=== PATIENT | female | born 1985 ===

== ENCOUNTER 2016-08-18 07:25 | Emergency (ER) | payer OTHER ==
--- NOTE | 2016-08-18 09:44 | DIAGNOSTIC IMAGING REPORT ---
PROCEDURE: CT ABD/PELVIS WITH CONTRAST CLINICAL INDICATION: ABDOMINAL PAIN TECHNIQUE: 125 ml of Isovue 300 were injected intravenously and axial images were obtained of the entire abdomen and pelvis with sagittal and coronal reformations. COMPARISON: None. FINDINGS: ABDOMEN: Lung base are clear. Normal heart size. Liver, gallbladder, pancreas, spleen, adrenal glands, kidneys and abdominal aorta are normal. Mild descending colon diverticulosis. PELVIS: Normal appendix. Mild mid sigmoid diverticulosis with wall thickening and mild inflammatory changes. There is no free air or abscess. IUD in place. 1.3 cm involuting left ovarian cyst with small amount of free fluid. Normal bladder. Bones are unremarkable. IMPRESSION: 1. Mild sigmoid diverticulitis without abscess or free air 2. Mild descending colon diverticulosis 3. IUD in place 4. 1.3 cm involuting left ovarian cyst with a small amount of free fluid 5. Results discussed with Dr. Montiel All CT scans at this facility use dose modulation, iterative reconstruction, and/or weight-based dosing when appropriate to reduce radiation dose to as low as reasonably achievable.
--- NOTE | 2016-08-18 09:57 | ED ORDER SUMMARY ---
..... Patient: JESUS MANUEL MEADE OrderSheet [facility] VisitID: [id number] [address] [place] [address] 31y, F Registration Date/Time: 08/18/2016 ORDER SHEET Weight: 65.7 kg (stated) Allergies: No Known Drug Allergy GENERAL ORDERS: CBC w Diff Urgent (08:14 08/18/2016 Peterson ARREAGA) (Ack 8:19 ADITYAoerusselner) (8:24 Carl R.N.) CMP Urgent (08:08/18/2016 Peterson ARREAGA) (Ack 8:19 ADITYAoerusselner) (8:24 Carl R.N.) UA-Culture if indicated Urgent (08:08/18/2016 Peterson ARREAGA) (Ack 8:19 ADITYAoerusselner) (8:53 KHoerner) Amylase Urgent (08:08/18/2016 Peterson ARREAGA) (Ack 8:19 ADITYAoerusselner) (8:24 Carl R.N.) Lipase Urgent (08:08/18/2016 Peterson ARREAGA) (Ack 8:19 ADITYAoerner) (8:24 Carl R.N.) Urine Urgent (08:08/18/2016 Peterson ARREAGA) (Ack 8:19 ADITYAoerner) (8:53 KHoerner) Blood Culture (No) (N/A) Urgent (08:32 08/18/2016 Peterson ARREAGA) (Ack 8:34 KHoerner) (8:53 KHoerner) Lactate, Serum Urgent (08:32 08/18/2016 Peterson ARREAGA) (Ack 8:34 ADITYAoerusselner) (8:53 KHoerner) CT Abd/Pel w Cont (No) (See report) Urgent (08:49 08/18/2016 Peterson ARREAGA) (Ack 8:53 KHoerner) (9:15 KHoerner) MEDICATION ORDERS: Ciprofloxacin PO 500 mg (NOW) (09:45 08/18/2016 Ham Marie) (Ack 10:01 Carl R.N.) (10:13 Carl R.N.) IV FLUIDS: IV NS : initial bolus 500 mL (1000 mL/hr), then 125 mL/hr for 4h (NOW); Urgent (08:14 08/18/2016 Peterson ARREAGA) (Ack 8:16 Carl R.N.) (8:24 Carl R.N.) Dilaudid IV 0.5 mg (HIGH ALERT MEDICATION, NOW) (08:48 08/18/2016 Peterson ARREAGA) (Ack 8:52 Carl R.N.) (9:09 Carl R.N.) Zofran IV 4 mg (NOW) (08:48 08/18/2016 Peterson ARREAGA) (Ack 8:52 Carl R.N.) (9:09 Carl R.N.) Flagyl IV 500 mg/100mL (NOW) (09:45 08/18/2016 Ham Marie) (Ack 10:01 Carl R.N.) (10:13 Carl R.N.) ORDER SHEET NOTES: [Electronically signed by Flakito Montiel Dr. (11:27 08/18/2016)] [Electronically signed by Mey Zazueta R.N. (11:38 08/18/2016)] [Electronically locked/signed by Mey Zazueta R.N. (11:38 08/18/2016)]
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
--- NOTE | 2016-08-18 09:57 | ED ORDER SUMMARY ---
..... Patient: JESUS MANUEL MEADE OrderSheet [facility] VisitID: [id number] [address] [place] [address] 31y, F Registration Date/Time: 08/18/2016 ORDER SHEET Weight: 65.7 kg (stated) Allergies: No Known Drug Allergy GENERAL ORDERS: CBC w Diff Urgent (08:14 08/18/2016 Petersno ARREAGA) (Ack 8:19 ADITYAoerusselner) (8:24 Carl R.N.) CMP Urgent (08:08/18/2016 Peterson ARREAGA) (Ack 8:19 ADITYAoerusselner) (8:24 Carl R.N.) UA-Culture if indicated Urgent (08:08/18/2016 Peterson ARREAGA) (Ack 8:19 ADITYAoerusselner) (8:53 KHoerner) Amylase Urgent (08:08/18/2016 Peterson ARREAGA) (Ack 8:19 ADITYAoerusselner) (8:24 Carl R.N.) Lipase Urgent (08:08/18/2016 Peterson ARREAGA) (Ack 8:19 ADITYAoerner) (8:24 Carl R.N.) Urine Urgent (08:08/18/2016 Peterson ARREAGA) (Ack 8:19 ADITYAoerner) (8:53 KHoerner) Blood Culture (No) (N/A) Urgent (08:32 08/18/2016 Peterson ARREAGA) (Ack 8:34 KHoerner) (8:53 KHoerner) Lactate, Serum Urgent (08:32 08/18/2016 Peterson ARREAGA) (Ack 8:34 ADITYAoerusselner) (8:53 KHoerner) CT Abd/Pel w Cont (No) (See report) Urgent (08:49 08/18/2016 Peterson ARREAGA) (Ack 8:53 KHoerner) (9:15 KHoerner) MEDICATION ORDERS: Ciprofloxacin PO 500 mg (NOW) (09:45 08/18/2016 Ham Marie) (Ack 10:01 Carl R.N.) (10:13 Carl R.N.) IV FLUIDS: IV NS : initial bolus 500 mL (1000 mL/hr), then 125 mL/hr for 4h (NOW); Urgent (08:14 08/18/2016 Peterson ARREAGA) (Ack 8:16 Carl R.N.) (8:24 Carl R.N.) Dilaudid IV 0.5 mg (HIGH ALERT MEDICATION, NOW) (08:48 08/18/2016 Peterson ARREAGA) (Ack 8:52 Carl R.N.) (9:09 Carl R.N.) Zofran IV 4 mg (NOW) (08:48 08/18/2016 Peterson ARREAGA) (Ack 8:52 Carl R.N.) (9:09 Carl R.N.) Flagyl IV 500 mg/100mL (NOW) (09:45 08/18/2016 Ham Marie) (Ack 10:01 Carl R.N.) (10:13 Carl R.N.) ORDER SHEET NOTES: [Electronically signed by Flakito Montiel Dr. (11:27 08/18/2016)] [Electronically signed by Mey Zazueta R.N. (11:38 08/18/2016)] [Electronically locked/signed by Mey Zazueta R.N. (11:38 08/18/2016)]
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
--- NOTE | 2016-08-18 11:38 | ED DISCHARGE INSTRUCTIONS ---
Patient: JESUS MANUEL MEADE General Instructions [facility] VisitID: [id number] Velvet Sánchez [place] [address] 31y, F Registration Date/Time: 08/18/2016 Acute diverticulitis of the colon. No perforation, bleeding, abscess, peritonitis or obstruction. INSTRUCTIONS Alternate Tylenol (Acetaminophen) or Motrin (Ibuprofen) for fever control. Take according to label instructions. Drink plenty of fluids. Warnings: GENERAL WARNINGS: Return or contact your physician immediately if your condition worsens or changes unexpectedly, if not improving as expected, or if other problems arise. SPECIFICALLY, return if you develop fever or the inability to keep fluids down; or if there is no improvement in the pain in the abdomen. Your Current Medications: CONTINUE TAKING THE FOLLOWING MEDICATIONS: Gabapentin Oral : 100 mg 3x a day. LamoTRIgine Oral : 150 mg bid. Vitamins/Minerals Oral. Wellbutrin Oral : 150 mg daily. Prescription Medications: Zofran (orally disintegrating tablets) 4 mg: take 1 orally every 6 hours as needed for nausea and vomiting. Dispense ten (10). No refill. Substitution is permissible. Cipro 500 mg: take 1 tab orally every 12 hours for 7 days. No refills. Substitution is permissible. Oxycodone/APAP 5 mg/325 mg: take 1 tablet orally every 6 hours as needed for pain. Dispense fifteen (15). No refill. Flagyl 500 mg: Take 1 tablet orally every 8 hours for 7 days. No refill. Substitution is permissible Follow-up: Follow up with your doctor in about three days. Call for an appointment. Screening today revealed the patient's blood pressure to be in the normal range. ADDITIONAL INFORMATION Diverticulitis Some people develop pouches along the wall of the colon as they get older. The pouches,called diverticuli, usually cause no symptoms. If the pouches become blocked, an infection may occur known as diverticulitis. This causes lower abdominal pain and fever. If not treated, it can become a serious condition, causing an abscess to form inside the pouch. The abscess may block the instestinal tract even or rupture, spreading infection throughout the abdomen. When treatment is started early, oral antibiotics alone may be enough to cure diverticulitis. This method is tried first. However, if you do not improve or if your condition worsens while you are trying oral antibiotics, it will be necessary to admit you to the hospital for IV antibiotics. Severe cases may require surgery. Home care The following guidelines will help you care for your diverticulitis at home: During the acute illness, rest and follow a low-fiber diet: Foods to Include: flake cereal, mashed potatoes, pancakes, waffles, pasta, white bread, rice, applesauce, bananas, eggs, meat, fish, poultry, tofu, cooked vegetables. Take antibiotics exactly as directed. Do not miss any doses or stop taking the medication, even if you feel better. Monitor your temperature and report any rising temperature to your doctor. Preventing future attacks Once you have had an episode of diverticulitis, you are at risk of having a recurrence. After you have recovered from this episode, you may be able to reduce your risk by eating a high-fiber diet (2035 gm/day of fiber). This cleans out the colon pouches that already exist and prevent new ones from forming. Foods high in fiber includes fresh fruits and edible peelings, raw or lightly cooked vegetables, whole grain cereals and breads, dried beans and peas, bran. Follow-up care Follow up with your doctor as advised or sooner if you are not improving in the nexttwo days. When to seek medical care Get prompt medical attention if any of the following occur: Fever of 100.4F (38C) or higher, or as directed by your health care provider Repeated vomiting or swelling of the abdomen Weakness, dizziness, light-headedness Increasing abdominal pain that becomes severe or spreads to your back Pain that moves to the right lower abdomen Rectal bleeding (red, black or maroon color of the stools) Unexpected vaginal bleeding Fever Control (Adult) A fever is a natural reaction of the body to an illness. In most cases, the temperature itself is not harmful. It actually helps the body fight infections. A fever does not need to be treated unless you feel very uncomfortable. Home Care If you feel warm, check your temperature. If you feel very uncomfortable and your temperature is at or higher than 100.4F (38C) oral, you may take acetaminophen (Tylenol) every 4 to 6 hours. If you cant take or keep down oral medicine, ask your pharmacist for Tylenol suppositories, which you can get without a prescription. If the fever does not respond to acetaminophen within 1 hour, take ibuprofen (Advil or Motrin). If this works, keep taking the ibuprofen every 6 to 8 hours. Note: If you have chronic liver or kidney disease or ever had a stomach ulcer or GI bleeding, talk with your doctor before using these medications. If either medication alone does not keep the fever down, you may alternate the two medicines every 3 to 4 hours, only if your healthcare provider has instructed you to do so. For example, take Motrin then wait 3 hours, take Tylenol then wait 3 hours, take Motrin, and so on. Follow your healthcare providers instructions exactly. Clothing: Keep clothing light because excess body heat is lost through the skin. The fever will go up if you wear extra layers or wrap in blankets. Fluids: Fever causes the body to lose water through evaporation. Drink plenty of fluids such as water, juice, clear sodas, dario tess, or lemonade. Do not use aspirin in anyone under 18 years of age who is ill with a fever. It can cause severe liver damage. Follow Up with your doctor or as advised by our staff if you do not get better after 48 hours. Get Prompt Medical Attention if any of the following occur: Fever does not get better after taking fever medication Fast or difficult breathing Earache, sinus pain, stiff or painful neck, headache, repeated diarrhea or vomiting You feel unusually irritable, drowsy, or confused A rash appears You feel weak or dizzy, or that you might faint Ondansetron Oral disintegrating tablet What is this medicine? ONDANSETRON (on KEVON se chantel) is used to treat nausea and vomiting caused by chemotherapy. It is also used to prevent or treat nausea and vomiting after surgery. How should I use this medicine? These tablets are made to dissolve in the mouth. Do not try to push the tablet through the foil backing. With dry hands, peel away the foil backing and gently remove the tablet. Place the tablet in the mouth and allow it to dissolve, then swallow. While you may take these tablets with water, it is not necessary to do so. Talk to your haul driver regarding the use of this medicine in children. Special care may be needed. What side effects may I notice from receiving this medicine? Side effects that you should report to your doctor or health intensive care unit nurse as soon as possible: allergic reactions like skin rash, itching or hives, swelling of the face, lips, or tongue breathing problems dizziness fast or irregular heartbeat feeling faint or lightheaded, falls fever and chills swelling of the hands and feet tightness in the chest Side effects that usually do not require medical attention (report to your doctor or health intensive care unit nurse if they continue or are bothersome): constipation or diarrhea headache What may interact with this medicine? Do not take this medicine with any of the following medications: -apomorphine -cisapride -dofetilide -dronedarone -pimozide -thioridazine -ziprasidone This medicine may also interact with the following medications: -carbamazepine -phenytoin -rifampicin -tramadol -other medicines that prolong the QT interval (cause an abnormal heart rhythm) What if I miss a dose? If you miss a dose, take it as soon as you can. If it is almost time for your next dose, take only that dose. Do not take double or extra doses. Where should I keep my medicine? Keep out of the reach of children. Store between 2 and 30 degrees C (36 and 86 degrees F). Throw away any unused medicine after the expiration date. What should I tell my health care provider before I take this medicine? They need to know if you have any of these conditions: heart disease history of irregular heartbeat liver disease low levels of magnesium or potassium in the blood an unusual or allergic reaction to ondansetron, granisetron, other medicines, foods, dyes, or preservatives or trying to get breast-feeding What should I watch for while using this medicine? Check with your doctor or health intensive care unit nurse as soon as you can if you have any sign of an allergic reaction. Ciprofloxacin Hydrochloride Oral tablet What is this medicine? CIPROFLOXACIN (sip raven FLOX a sin) is a quinolone antibiotic. It is used to treat certain kinds of bacterial infections. It will not work for colds, flu, or other viral infections. How should I use this medicine? Take this medicine by mouth with a glass of water. Follow the directions on the prescription label. Take your medicine at regular intervals. Do not take your medicine more often than directed. Take all of your medicine as directed even if you think your are better. Do not skip doses or stop your medicine early. You can take this medicine with food or on an empty stomach. It can be taken with a meal that contains dairy or calcium, but do not take it alone with a dairy product, like milk or yogurt or calcium-fortified juice. A special MedGuide will be given to you by the pharmacist with each prescription and refill. Be sure to read this information carefully each time. Talk to your haul driver regarding the use of this medicine in children. Special care may be needed. What side effects may I notice from receiving this medicine? Side effects that you should report to your doctor or health intensive care unit nurse as soon as possible: - allergic reactions like skin rash, itching or hives, swelling of the face, lips, or tongue - breathing problems - confusion, nightmares or hallucinations - feeling faint or lightheaded, falls - irregular heartbeat - joint, muscle or tendon pain or swelling - pain or trouble passing urine -persistent headache with or without blurred vision - redness, blistering, peeling or loosening of the skin, including inside the mouth - seizure - unusual pain, numbness, tingling, or weakness Side effects that usually do not require medical attention (report to your doctor or health intensive care unit nurse if they continue or are bothersome): - diarrhea - nausea or stomach upset - white patches or sores in the mouth What may interact with this medicine? Do not take this medicine with any of the following medications: cisapride droperidol terfenadine tizanidine This medicine may also interact with the following medications: antacids caffeine cyclosporin didanosine (ddI) buffered tablets or powder medicines for diabetes medicines for inflammation like ibuprofen, naproxen methotrexate multivitamins omeprazole phenytoin probenecid sucralfate theophylline warfarin What if I miss a dose? If you miss a dose, take it as soon as you can. If it is almost time for your next dose, take only that dose. Do not take double or extra doses. Where should I keep my medicine? Keep out of the reach of children. Store at room temperature below 30 degrees C (86 degrees F). Keep container tightly closed. Throw away any unused medicine after the expiration date. What should I tell my health care provider before I take this medicine? They need to know if you have any of these conditions: -bone problems -cerebral disease -joint problems -irregular heartbeat -kidney disease -liver disease -myasthenia gravis -seizure disorder -tendon problems -an unusual or allergic reaction to ciprofloxacin, other antibiotics or medicines, foods, dyes, or preservatives - or trying to get -breast-feeding What should I watch for while using this medicine? Tell your doctor or health intensive care unit nurse if your symptoms do not improve. Do not treat diarrhea with over the counter products. Contact your doctor if you have diarrhea that lasts more than 2 days or if it is severe and watery. You may get drowsy or dizzy. Do not drive, use machinery, or do anything that needs mental alertness until you know how this medicine affects you. Do not stand or sit up quickly, especially if you are an older patient. This reduces the risk of dizzy or fainting spells. This medicine can make you more sensitive to the sun. Keep out of the sun. If you cannot avoid being in the sun, wear protective clothing and use sunscreen. Do not use sun lamps or tanning beds/booths. Avoid antacids, aluminum, calcium, iron, magnesium, and zinc products for 6 hours before and 2 hours after taking a dose of this medicine. Oxycodone Hydrochloride, Acetaminophen Oral tablet What is this medicine? ACETAMINOPHEN; OXYCODONE (a set a JEANNIE kirsten fen; ox i KOE done) is a pain reliever. It is used to treat mild to moderate pain. How should I use this medicine? Take this medicine by mouth with a full glass of water. Follow the directions on the prescription label. Take your medicine at regular intervals. Do not take your medicine more often than directed. Talk to your haul driver regarding the use of this medicine in children. Special care may be needed. Patients over 65 years old may have a stronger reaction and need a smaller dose. What side effects may I notice from receiving this medicine? Side effects that you should report to your doctor or health intensive care unit nurse as soon as possible: allergic reactions like skin rash, itching or hives, swelling of the face, lips, or tongue breathing difficulties, wheezing confusion light headedness or fainting spells severe stomach pain yellowing of the skin or the whites of the eyes Side effects that usually do not require medical attention (report to your doctor or health intensive care unit nurse if they continue or are bothersome): dizziness drowsiness nausea vomiting What may interact with this medicine? alcohol antihistamines barbiturates like amobarbital, butalbital, butabarbital, methohexital, pentobarbital, phenobarbital, thiopental, and secobarbital benztropine drugs for bladder problems like solifenacin, trospium, oxybutynin, tolterodine, hyoscyamine, and methscopolamine drugs for breathing problems like ipratropium and tiotropium drugs for certain stomach or intestine problems like propantheline, homatropine methylbromide, glycopyrrolate, atropine, belladonna, and dicyclomine general anesthetics like etomidate, ketamine, nitrous oxide, propofol, desflurane, enflurane, halothane, isoflurane, and sevoflurane medicines for depression, anxiety, or psychotic disturbances medicines for sleep muscle relaxants naltrexone narcotic medicines (opiates) for pain phenothiazines like perphenazine, thioridazine, chlorpromazine, mesoridazine, fluphenazine, prochlorperazine, promazine, and trifluoperazine scopolamine tramadol trihexyphenidyl What if I miss a dose? If you miss a dose, take it as soon as you can. If it is almost time for your next dose, take only that dose. Do not take double or extra doses. Where should I keep my medicine? Keep out of the reach of children. This medicine can be abused. Keep your medicine in a safe place to protect it from theft. Do not share this medicine with anyone. Selling or giving away this medicine is dangerous and against the law. Store at room temperature between 20 and 25 degrees C (68 and 77 degrees F). Keep container tightly closed. Protect from light. This medicine may cause accidental overdose and if it is taken by other adults, children, or pets. Flush any unused medicine down the toilet to reduce the chance of harm. Do not use the medicine after the expiration date. What should I tell my health care provider before I take this medicine? They need to know if you have any of these conditions: brain tumor Crohn's disease, inflammatory bowel disease, or ulcerative colitis drink more than 3 alcohol containing drinks per day drug abuse or addiction head injury heart or circulation problems kidney disease or problems going to the bathroom liver disease lung disease, asthma, or breathing problems an unusual or allergic reaction to acetaminophen, oxycodone, other opioid analgesics, other medicines, foods, dyes, or preservatives or trying to get breast-feeding What should I watch for while using this medicine? Tell your doctor or health intensive care unit nurse if your pain does not go away, if it gets worse, or if you have new or a different type of pain. You may develop tolerance to the medicine. Tolerance means that you will need a higher dose of the medication for pain relief. Tolerance is normal and is expected if you take this medicine for a long time. Do not suddenly stop taking your medicine because you may develop a severe reaction. Your body becomes used to the medicine. This does NOT mean you are addicted. Addiction is a behavior related to getting and using a drug for a non-medical reason. If you have pain, you have a medical reason to take pain medicine. Your doctor will tell you how much medicine to take. If your doctor wants you to stop the medicine, the dose will be slowly lowered over time to avoid any side effects. You may get drowsy or dizzy. Do not drive, use machinery, or do anything that needs mental alertness until you know how this medicine affects you. Do not stand or sit up quickly, especially if you are an older patient. This reduces the risk of dizzy or fainting spells. Alcohol may interfere with the effect of this medicine. Avoid alcoholic drinks. There are different types of narcotic medicines (opiates) for pain. If you take more than one type at the same time, you may have more side effects. Give your health care provider a list of all medicines you use. Your doctor will tell you how much medicine to take. Do not take more medicine than directed. Call emergency for help if you have problems breathing. The medicine will cause constipation. Try to have a bowel movement at least every 2 to 3 days. If you do not have a bowel movement for 3 days, call your doctor or health intensive care unit nurse. Do not take Tylenol (acetaminophen) or medicines that have acetaminophen with this medicine. Too much acetaminophen can be very dangerous. Many nonprescription medicines contain acetaminophen. Always read the labels carefully to avoid taking more acetaminophen. Metronidazole Oral tablet What is this medicine? METRONIDAZOLE (me troe NI da zole) is an antiinfective. It is used to treat certain kinds of bacterial and protozoal infections. It will not work for colds, flu, or other viral infections. How should I use this medicine? Take this medicine by mouth with a full glass of water. Follow the directions on the prescription label. Take your medicine at regular intervals. Do not take your medicine more often than directed. Take all of your medicine as directed even if you think you are better. Do not skip doses or stop your medicine early. Talk to your haul driver regarding the use of this medicine in children. Special care may be needed. What side effects may I notice from receiving this medicine? Side effects that you should report to your doctor or health intensive care unit nurse as soon as possible: allergic reactions like skin rash or hives, swelling of the face, lips, or tongue confusion, clumsiness difficulty speaking discolored or sore mouth dizziness fever, infection numbness, tingling, pain or weakness in the hands or feet trouble passing urine or change in the amount of urine redness, blistering, peeling or loosening of the skin, including inside the mouth seizures unusually weak or tired vaginal irritation, dryness, or discharge Side effects that usually do not require medical attention (report to your doctor or health intensive care unit nurse if they continue or are bothersome): diarrhea headache irritability metallic taste nausea stomach pain or cramps trouble sleeping What may interact with this medicine? Do not take this medicine with any of the following medications: alcohol or any product that contains alcohol amprenavir oral solution cisapride disulfiram dofetilide dronedarone paclitaxel injection pimozide ritonavir oral solution sertraline oral solution sulfamethoxazole-trimethoprim injection thioridazine ziprasidone This medicine may also interact with the following medications: cimetidine lithium other medicines that prolong the QT interval (cause an abnormal heart rhythm) phenobarbital phenytoin warfarin What if I miss a dose? If you miss a dose, take it as soon as you can. If it is almost time for your next dose, take only that dose. Do not take double or extra doses. Where should I keep my medicine? Keep out of the reach of children. Store at room temperature below 25 degrees C (77 degrees F). Protect from light. Keep container tightly closed. Throw away any unused medicine after the expiration date. What should I tell my health care provider before I take this medicine? They need to know if you have any of these conditions: anemia or other blood disorders disease of the nervous system fungal or yeast infection if you drink alcohol containing drinks liver disease seizures an unusual or allergic reaction to metronidazole, or other medicines, foods, dyes, or preservatives or trying to get breast-feeding What should I watch for while using this medicine? Tell your doctor or health intensive care unit nurse if your symptoms do not improve or if they get worse. You may get drowsy or dizzy. Do not drive, use machinery, or do anything that needs mental alertness until you know how this medicine affects you. Do not stand or sit up quickly, especially if you are an older patient. This reduces the risk of dizzy or fainting spells. Avoid alcoholic drinks while you are taking this medicine and for three days afterward. Alcohol may make you feel dizzy, sick, or flushed. If you are being treated for a sexually transmitted disease, avoid sexual contact until you have finished your treatment. Your sexual partner may also need treatment. You have been given the following additional information: Diverticulitis Fever Control (Adult) Ondansetron Oral disintegrating tablet Ciprofloxacin Hydrochloride Oral tablet Oxycodone Hydrochloride, Acetaminophen Oral tablet Metronidazole Oral tablet (Electronically signed by Flakito Montiel Dr. 08/18/2016 11:27)
--- NOTE | 2016-08-18 11:39 | ED MAR SUMMARY ---
..... Medication Administration Record [facility] [address] [place] [address] Patient: JESUS MANUEL MEADE Visit ID: [id number] 31y, F Weight: 65.7 kg Height/Length: 61 in BMI: 27.4 ALLERGIES: No Known Drug Allergy Start 08:24 08/18/2016 Mey Zazueta R.N. Medication Administered: IV NS (SALINE), Dose: IV Fluids over 30 minute(s), Rate: 1000 mL/hr, Dispensed: 1000 mL bag, Site: #1 right forearm. Medication Ordered: IV NS : initial bolus 500 mL (1000 mL/hr), then 125 mL/hr for 4h (NOW); Urgent. Given 09:04 08/18/2016 Mey Zazueta R.N. Medication Administered: DILAUDID [IVP] (HYDROMORPHONE HCL PF), Dose: 0.5 mg IVP over 2 minute(s), Site: #1 right forearm. Medication Ordered: Dilaudid IV 0.5 mg (HIGH ALERT MEDICATION, NOW). Given 09:04 08/18/2016 Mey Zazueta R.N. Medication Administered: ZOFRAN [IVP] (ONDANSETRON HCL), Dose: 4 mg IVP over 2 minute(s), Site: #1 right forearm. Medication Ordered: Zofran IV 4 mg (NOW). Given 10:13 08/18/2016 Mey Zazueta R.N. Medication Administered: CIPROFLOXACIN [PO] (CIPROFLOXACIN), Dose: 500 mg Tablets PO. Medication Ordered: Ciprofloxacin PO 500 mg (NOW). Start 10:13 08/18/2016 Mey Zazueta R.N., Stop 11:15 08/18/2016 Mey Zazueta R.N. Medication Administered: FLAGYL [IVPB] (METRONIDAZOLE IN NACL), Dose: 500 mg IVPB over 1 hour(s), Rate: 100 mL/hr, Dispensed: 100 mL bag, Site: #1 right forearm. Medication Ordered: Flagyl IV 500 mg/100mL (NOW).
--- NOTE | 2016-08-18 11:39 | ED MAR SUMMARY ---
..... Medication Administration Record [facility] [address] [place] [address] Patient: JESUS MANUEL MEADE Visit ID: [id number] 31y, F Weight: 65.7 kg Height/Length: 61 in BMI: 27.4 ALLERGIES: No Known Drug Allergy Start 08:24 08/18/2016 Mey Zazueta R.N. Medication Administered: IV NS (SALINE), Dose: IV Fluids over 30 minute(s), Rate: 1000 mL/hr, Dispensed: 1000 mL bag, Site: #1 right forearm. Medication Ordered: IV NS : initial bolus 500 mL (1000 mL/hr), then 125 mL/hr for 4h (NOW); Urgent. Given 09:04 08/18/2016 Mey Zazueta R.N. Medication Administered: DILAUDID [IVP] (HYDROMORPHONE HCL PF), Dose: 0.5 mg IVP over 2 minute(s), Site: #1 right forearm. Medication Ordered: Dilaudid IV 0.5 mg (HIGH ALERT MEDICATION, NOW). Given 09:04 08/18/2016 Mey Zazueta R.N. Medication Administered: ZOFRAN [IVP] (ONDANSETRON HCL), Dose: 4 mg IVP over 2 minute(s), Site: #1 right forearm. Medication Ordered: Zofran IV 4 mg (NOW). Given 10:13 08/18/2016 Mey Zazueta R.N. Medication Administered: CIPROFLOXACIN [PO] (CIPROFLOXACIN), Dose: 500 mg Tablets PO. Medication Ordered: Ciprofloxacin PO 500 mg (NOW). Start 10:13 08/18/2016 Mey Zazueta R.N., Stop 11:15 08/18/2016 Mey Zazueta R.N. Medication Administered: FLAGYL [IVPB] (METRONIDAZOLE IN NACL), Dose: 500 mg IVPB over 1 hour(s), Rate: 100 mL/hr, Dispensed: 100 mL bag, Site: #1 right forearm. Medication Ordered: Flagyl IV 500 mg/100mL (NOW).
--- NOTE | 2016-08-18 11:39 | ED MED RECONCILIATION SUMMARY ---
Patient: JESUS MANUEL MEADE Medication Reconciliation Report [facility] VisitID: [id number] [address]chez [place] [address] 31y, F Registration Date/Time: 08/18/2016 Weight: 65.7 kg Height/Length: 61 in. BMI: 27.4 ALLERGIES: No Known Drug Allergy The patient's Home Medications are listed below: CONTINUE TAKING THE FOLLOWING MEDICATIONS: Gabapentin Oral 100 mg, 3x a day LamoTRIgine Oral 150 mg, bid Vitamins/Minerals Oral Wellbutrin Oral 150 mg, daily The source(s) of the original Home Medication information: patient The following Medications were given to the patient in the Emergency Department: IV NS IV Fluids bolus 0, then 1000 mL/hr, administered: 08/18/2016 8:24:00 AM Zofran [IVP] IVP 4 mg, administered: 08/18/2016 9:04:00 AM Dilaudid [IVP] IVP 0.5 mg, administered: 08/18/2016 9:04:00 AM Ciprofloxacin [PO] PO 500 mg, administered: 08/18/2016 10:13:00 AM Flagyl [IVPB] IVPB bolus 0, then 500 mg 100 mL/hr, administered: 08/18/2016 10:13:00 AM The following Medications were prescribed to the patient: Zofran (orally disintegrating tablets) 4 mg: take 1 orally every 6 hours as needed for nausea and vomiting. Dispense ten (10). No refill. Substitution is permissible. -- Flakito Montiel Dr. Cipro 500 mg: take 1 tab orally every 12 hours for 7 days. No refills. Substitution is permissible. -- Flakito Montiel Dr. Oxycodone/APAP 5 mg/325 mg: take 1 tablet orally every 6 hours as needed for pain. Dispense fifteen (15). No refill. -- Flakito Montiel Dr. Flagyl 500 mg: Take 1 tablet orally every 8 hours for 7 days. No refill. Substitution is permissible -- Flakito Montiel Dr.
--- NOTE | 2016-08-18 11:39 | ED MED RECONCILIATION SUMMARY ---
Patient: JESUS MANUEL MEADE Medication Reconciliation Report [facility] VisitID: [id number] [address] [place] [address] 31y, F Registration Date/Time: 08/18/2016 Weight: 65.7 kg Height/Length: 61 in. BMI: 27.4 ALLERGIES: No Known Drug Allergy The patient's Home Medications are listed below: CONTINUE TAKING THE FOLLOWING MEDICATIONS: Gabapentin Oral 100 mg, 3x a day LamoTRIgine Oral 150 mg, bid Vitamins/Minerals Oral Wellbutrin Oral 150 mg, daily The source(s) of the original Home Medication information: patient The following Medications were given to the patient in the Emergency Department: IV NS IV Fluids bolus 0, then 1000 mL/hr, administered: 08/18/2016 8:24:00 AM Zofran [IVP] IVP 4 mg, administered: 08/18/2016 9:04:00 AM Dilaudid [IVP] IVP 0.5 mg, administered: 08/18/2016 9:04:00 AM Ciprofloxacin [PO] PO 500 mg, administered: 08/18/2016 10:13:00 AM Flagyl [IVPB] IVPB bolus 0, then 500 mg 100 mL/hr, administered: 08/18/2016 10:13:00 AM The following Medications were prescribed to the patient: Zofran (orally disintegrating tablets) 4 mg: take 1 orally every 6 hours as needed for nausea and vomiting. Dispense ten (10). No refill. Substitution is permissible. -- Flakito Montiel Dr. Cipro 500 mg: take 1 tab orally every 12 hours for 7 days. No refills. Substitution is permissible. -- Flakito Montiel Dr. Oxycodone/APAP 5 mg/325 mg: take 1 tablet orally every 6 hours as needed for pain. Dispense fifteen (15). No refill. -- Flakito Montiel Dr. Flagyl 500 mg: Take 1 tablet orally every 8 hours for 7 days. No refill. Substitution is permissible -- Flakito Montiel Dr.
== END 2016-08-18 11:25 | disposition home or self-care (01) ==
LOC: ED SRH 07:25
DX: K57.32 Diverticulitis of large intestine without perforation or abscess without bleeding (principal); Z79.899 Other long term (current) drug therapy
CPT/HCPCS: 90004; 90065; 90074; 90100; 90469; 92031; 92235; 92530; 93070; 95059

== ENCOUNTER 2016-08-20 00:19 | Emergency (ER) | payer OTHER ==
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
--- NOTE | 2016-08-20 09:11 | ED ORDER SUMMARY ---
..... Patient: JESUS MANUEL MEADE OrderSheet [facility] VisitID: [id number] [address] [place] [address] 31y, F Registration Date/Time: 08/20/2016 ORDER SHEET Weight: 65.7 kg (stated) Allergies: No Known Drug Allergy GENERAL ORDERS: CBC w Diff Urgent (01:08/20/2016 Denny ARREAGA) (Ack 1:24 Thooraaniceto ER Exercise Scientist) (1:31 RMarsden R.N.) PCT (Procalcitonin) Urgent (01:08/20/2016 Denny ARREAGA) (Ack 1:24 Saida ER Exercise Scientist) (1:32 RMarsden R.N.) CBC w Diff Urgent (03:09 08/20/2016 JQuivey R.N. per protocol) (3:12 Thooraerty ER Exercise Scientist) MEDICATION ORDERS: Phenergan IV 12.5 mg (HIGH ALERT MEDICATION, NOW) (05:29 08/20/2016 RMarsden R.N. verbal order read back to Denny ARREAGA) (5:30 RMarsden R.N.) Verbal order read back and verified IV FLUIDS: IV NS : initial bolus 1000 mL (1000 mL/hr), then 250 mL/hr for 2h (NOW); Routine (01:08/20/2016 Denny ARREAGA) (Ack 1:32 RMarsden R.N.) (2:09 RMarsden R.N.) Dilaudid IV 0.5 mg (NOW) (01:08/20/2016 Denny ARREAGA) (Ack 1:32 RMarsden R.N.) (2:12 RMarsden R.N.) Ativan IV 0.5 mg (NOW) (:08/20/2016 Denny ARREAGA) (Ack 1:32 RMarsden R.N.) (2:27 RMarsden R.N.) Flagyl IV 500 mg/100mL (NOW) (01:08/20/2016 Denny ARREAGA) (Ack 1:32 RMarsden R.N.) (4:12 RMarsden R.N.) Levofloxacin IV 500 mg/100mL (NOW) (01:23 08/20/2016 Denny ARREAGA) (Ack 1:32 RMarsden R.N.) (2:33 RMarsden R.N.) Zofran IV 4 mg (NOW) (01:08/20/2016 Denny ARREAGA) (Ack 1:32 RMarsden R.N.) (2:27 RMarsden R.N.) ORDER SHEET NOTES: [Electronically signed by Luma Noland R.N. (09:36 08/20/2016)] [Electronically signed by Franco Garcia MD (10:53 08/20/2016)] [Electronically locked/signed by Luma Noland R.N. (09:36 08/20/2016)]
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
--- NOTE | 2016-08-20 09:11 | ED ORDER SUMMARY ---
..... Patient: JESUS MANUEL MEADE OrderSheet [facility] VisitID: [id number] [address] [place] [address] 31y, F Registration Date/Time: 08/20/2016 ORDER SHEET Weight: 65.7 kg (stated) Allergies: No Known Drug Allergy GENERAL ORDERS: CBC w Diff Urgent (01:08/20/2016 Denny ARREAGA) (Ack 1:24 Sofa Labsaniceto ER Supervisor Cell Room) (1:31 RMarsden R.N.) PCT (Procalcitonin) Urgent (01:08/20/2016 Denny ARREAGA) (Ack 1:24 Saida ER Supervisor Cell Room) (1:32 RMarsden R.N.) CBC w Diff Urgent (03:09 08/20/2016 JQuivey R.N. per protocol) (3:12 Sofa Labserty ER Supervisor Cell Room) MEDICATION ORDERS: Phenergan IV 12.5 mg (HIGH ALERT MEDICATION, NOW) (05:29 08/20/2016 RMarsden R.N. verbal order read back to Denny ARREAGA) (5:30 RMarsden R.N.) Verbal order read back and verified IV FLUIDS: IV NS : initial bolus 1000 mL (1000 mL/hr), then 250 mL/hr for 2h (NOW); Routine (01:08/20/2016 Denny ARREAGA) (Ack 1:32 RMarsden R.N.) (2:09 RMarsden R.N.) Dilaudid IV 0.5 mg (NOW) (01:08/20/2016 Denny ARREAGA) (Ack 1:32 RMarsden R.N.) (2:12 RMarsden R.N.) Ativan IV 0.5 mg (NOW) (:08/20/2016 Denny ARREAGA) (Ack 1:32 RMarsden R.N.) (2:27 RMarsden R.N.) Flagyl IV 500 mg/100mL (NOW) (01:08/20/2016 Denny ARREAGA) (Ack 1:32 RMarsden R.N.) (4:12 RMarsden R.N.) Levofloxacin IV 500 mg/100mL (NOW) (01:23 08/20/2016 Denny ARREAGA) (Ack 1:32 RMarsden R.N.) (2:33 RMarsden R.N.) Zofran IV 4 mg (NOW) (01:08/20/2016 Denny ARREAGA) (Ack 1:32 RMarsden R.N.) (2:27 RMarsden R.N.) ORDER SHEET NOTES: [Electronically signed by Luma Noland R.N. (09:36 08/20/2016)] [Electronically signed by Franco Garcia MD (10:53 08/20/2016)] [Electronically locked/signed by Luma Noland R.N. (09:36 08/20/2016)]
--- NOTE | 2016-08-20 10:53 | ED MAR SUMMARY ---
..... Medication Administration Record [facility] [address] [place] [place] [address] Patient: JESUS MANUEL MEADE Visit ID: [id number] 31y, F Weight: 65.7 kg Height/Length: 61 in BMI: 27.4 ALLERGIES: No Known Drug Allergy Start 02:04 08/20/2016 Lily Hurtado R.N., Stop 09:25 08/20/2016 Luma Noland R.N. Medication Administered: IV NS (SALINE), Dose: IV Fluids over 2 hour(s), Rate: 500 mL/hr, Dispensed: 1000 mL bag, Site: #1 left hand. Medication Ordered: IV NS : initial bolus 1000 mL (1000 mL/hr), then 250 mL/hr for 2h (NOW); Routine. Given 02:08 08/20/2016 Lily Hurtado R.N. Medication Administered: ZOFRAN [IVP] (ONDANSETRON HCL), Dose: 4 mg IVP over 2 minute(s), Site: #1 left hand. Medication Ordered: Zofran IV 4 mg (NOW). Given 02:12 08/20/2016 Lily Hurtado R.N. Medication Administered: DILAUDID [IVP] (HYDROMORPHONE HCL PF), Dose: 0.5 mg IVP over 2 minute(s), Site: #1 left hand. Medication Ordered: Dilaudid IV 0.5 mg (NOW). Given 02:27 08/20/2016 Lily Hurtado R.N. Medication Administered: ATIVAN [IVP] (LORAZEPAM), Dose: 0.5 mg IVP over 2 minute(s), Site: #1 left hand. Medication Ordered: Ativan IV 0.5 mg (NOW). Start 02:33 08/20/2016 Lily Hurtado R.N., Stop 03:35 08/20/2016 Lily Hurtado R.N. Medication Administered: LEVOFLOXACIN [IVPB], Dose: 500 mg IVPB over 1 hour(s), Rate: 100 mL/hr, Dispensed: 100 mL bag, Site: #1 left hand. Medication Ordered: Levofloxacin IV 500 mg/100mL (NOW). Start 03:36 08/20/2016 Lily Hurtado RBertoN., Stop 04:34 08/20/2016 Lily Hurtado R.N. Medication Administered: FLAGYL [IVPB] (METRONIDAZOLE IN NACL), Dose: 500 mg IVPB over 1 hour(s), Rate: 100 mL/hr, Dispensed: 100 mL bag, Site: #1 left hand. Medication Ordered: Flagyl IV 500 mg/100mL (NOW). Given 04:47 08/20/2016 Lily Hurtado, RBertoN. Medication Administered: PHENERGAN [IVP] (PROMETHAZINE HCL), Dose: 12.5 mg IVP over 4 minute(s), Site: #1 left hand. Medication Ordered: Phenergan IV 12.5 mg (HIGH ALERT MEDICATION, NOW).
--- NOTE | 2016-08-20 10:53 | ED DISCHARGE INSTRUCTIONS ---
Patient: JESUS MANUEL MEADE General Instructions [facility] VisitID: [id number] [place] [address] 31y, F Registration Date/Time: 08/20/2016 Recurrent migraine headache without aura- poorly controlled and refractory to treatment. No chronic migraine headache, status migrainosus, hemiplegia, ophthalmoplegia or persistent aura. No cerebral infarction. Not relationship to menses. Diverticulitis Unable to keep po down. INSTRUCTIONS No strenuous activity. Rest. Take clear liquids only today, for the next 6 hours until better. Advance diet as tolerated. Warnings: Further evaluation is necessary. GENERAL WARNINGS: Return or contact your physician immediately if your condition worsens or changes unexpectedly, if not improving as expected, or if other problems arise. Your Current Medications: CONTINUE TAKING THE FOLLOWING MEDICATIONS: Ciprofloxacin Oral. Gabapentin Oral : 100 mg 3x a day. LamoTRIgine Oral : 150 mg bid. MetroNIDAZOLE Oral. Vitamins/Minerals Oral. Wellbutrin Oral : 150 mg daily. Follow-up: Follow up with your doctor tomorrow Sunday in one day. Understanding of the discharge instructions verbalized by patient. ADDITIONAL INFORMATION Migraine Headache Migraine headaches are related to changes in blood flow to the brain. This causes throbbing or constant pain on one or both sides of the head. The pain may last from a few hours to several days. There is usually nausea, vomiting, sensitivity to light and sound, and blurred vision. A migraine attack may be triggered by emotional stress, hormone changes during the menstrual cycle, oral contraceptives, alcohol use, certain foods containing tyramine, eye strain, weather changes, missing meals, or too little or too much sleep. Home Care For This Headache: 1) If you were given pain medicine for this headache, do not drive yourself home . Arrange for a ride, instead. When you get home, try to sleep. You should feel much better when you wake up. 2) Migraine headaches may improve with an ice pack on the forehead or at the base of the skull. Heat to the back of your neck may relieve any neck spasm. 3) Drink only clear liquids or eat a very light diet to avoid nausea/vomiting until symptoms improve. Preventing Future Headaches: 1) Pay attention to those factors that seem to trigger your headache. Try to avoid them when you can. If you have frequent headaches, it is useful to keep a diary of what you were doing, feeling or eating in the hours before each attack. Show this to your doctor to help find the cause of your headaches. a) If you feel that stress is a factor in your headaches, look at the sources of stress in your life. Find ways to release the build-up of those stresses by using regular exercise, relaxation methods (yoga, meditation), bio-feedback or simply taking time-out for yourself. For more information about this, consult your doctor or go to a local bookstore and review books and tapes on this subject. b) Tyramine is a substance present in the following foods : chocolate, yogurt, all cheeses except cottage cheese and cream cheese. smoked or pickled fish and meat (including vides, caviar, bologna, pepperoni, salami), liver, avocados, bananas, figs, raisins, and red wine. Be aware that these foods may trigger a migraine in some persons. Try taking these foods out of your diet for 1-2 months to see if this reduces headache frequency. Treating Future Attacks: 1) At the first sign of a headache, take time out if possible. Find a quiet, dark, comfortable place to sit or lie down. Let yourself relax or sleep. 2) An ice pack on the forehead or area of greatest pain may help. If you are having muscle spasm and tightness of the neck, a heating pad and massage to this area may be helpful. 3) If you have been prescribed a medicine to stop a migraine headache, use this at the very first warning sign of the headache (aura or initial pain) for best results. Follow Up with your doctor if the headache is not better within the next 24 hours. If you have frequent headaches you should discuss a treatment plan with your primary care doctor. Ask if you can have medicine to take at home the next time you get a bad headache. Poorly controlled chronic headaches may require a referral to a neurologist (headache specialist). Get Prompt Medical Attention if any of the following occur: Your head pain gets worse, or does not improve within 24 hours Repeated vomiting (cant keep liquids down) Sinus or ear or throat pain (not already reported) Fever of 100.4 F (38 C) or higher, or as directed by your healthcare provider Stiff neck Extreme drowsiness, confusion or fainting Dizziness, vertigo (dizziness with spinning sensation) Weakness of an arm or leg or one side of the face Difficulty with speech or vision Clear Liquid Diet Clear liquids are any liquid that you can see through as well as those that are very easy to digest. This is used while the body is recovering from irritation or infection of the stomach or intestinal tract. It may also be used before special procedures or surgery. This diet is to be used no more than three days. You may include the following items. Adults Adults should drink a total of 23 quarts of liquid per day. It may be easier to drink small frequent servings rather than a few large ones. Liquids can include: Fruit juices.Strained orange juice or lemonade (no pulp), apple, grape and cranberry juice, clear fruit drinks, sports drinks Beverages.Sport drinks, sodas, mineral water (plain or flavored), tea, black coffee, liquid gelatin (add twice the recommended amount of water) Soups.Clear broth, consomm, bouillon Desserts.Plain gelatin, popsicles, fruit juice bars Children Over 2 years old The following liquids are acceptable for children over age 2: Fruit juices.Strained orange juice or lemonade (no pulp), apple, grape and cranberry juice, clear fruit drinks Beverages. Sports drinks, sodas, mineral water (plain or flavored), tea, liquid gelatin (add twice the recommended amount of water) Soups. Clear broth, consomm, bouillon Desserts. Plain gelatin, popsicles, fruit juice bars Children under 2 years old Oral rehydration fluids such are available at drug stores and most grocery stores without a prescription. You have been given the following additional information: Headache, Migraine (Classical) Diet, Clear Liquid No strenuous activity. Rest. (Electronically signed by Franco Garcia MD 08/20/2016 10:53)
--- NOTE | 2016-08-20 10:53 | ED MAR SUMMARY ---
..... Medication Administration Record [facility] [address] [place] [address] Patient: JESUS MANUEL MEADE Visit ID: [id number] 31y, F Weight: 65.7 kg Height/Length: 61 in BMI: 27.4 ALLERGIES: No Known Drug Allergy Start 02:04 08/20/2016 Lily Hurtado R.N., Stop 09:25 08/20/2016 Luma Noland R.N. Medication Administered: IV NS (SALINE), Dose: IV Fluids over 2 hour(s), Rate: 500 mL/hr, Dispensed: 1000 mL bag, Site: #1 left hand. Medication Ordered: IV NS : initial bolus 1000 mL (1000 mL/hr), then 250 mL/hr for 2h (NOW); Routine. Given 02:08 08/20/2016 Lily Hurtado R.N. Medication Administered: ZOFRAN [IVP] (ONDANSETRON HCL), Dose: 4 mg IVP over 2 minute(s), Site: #1 left hand. Medication Ordered: Zofran IV 4 mg (NOW). Given 02:12 08/20/2016 Lily Hurtado R.N. Medication Administered: DILAUDID [IVP] (HYDROMORPHONE HCL PF), Dose: 0.5 mg IVP over 2 minute(s), Site: #1 left hand. Medication Ordered: Dilaudid IV 0.5 mg (NOW). Given 02:27 08/20/2016 Lily Hurtado R.N. Medication Administered: ATIVAN [IVP] (LORAZEPAM), Dose: 0.5 mg IVP over 2 minute(s), Site: #1 left hand. Medication Ordered: Ativan IV 0.5 mg (NOW). Start 02:33 08/20/2016 Lily Hurtado R.N., Stop 03:35 08/20/2016 Lily Hurtado R.N. Medication Administered: LEVOFLOXACIN [IVPB], Dose: 500 mg IVPB over 1 hour(s), Rate: 100 mL/hr, Dispensed: 100 mL bag, Site: #1 left hand. Medication Ordered: Levofloxacin IV 500 mg/100mL (NOW). Start 03:36 08/20/2016 Lily Hurtado RBertoN., Stop 04:34 08/20/2016 Lily Hurtado R.N. Medication Administered: FLAGYL [IVPB] (METRONIDAZOLE IN NACL), Dose: 500 mg IVPB over 1 hour(s), Rate: 100 mL/hr, Dispensed: 100 mL bag, Site: #1 left hand. Medication Ordered: Flagyl IV 500 mg/100mL (NOW). Given 04:47 08/20/2016 Lily Hurtado, RBertoN. Medication Administered: PHENERGAN [IVP] (PROMETHAZINE HCL), Dose: 12.5 mg IVP over 4 minute(s), Site: #1 left hand. Medication Ordered: Phenergan IV 12.5 mg (HIGH ALERT MEDICATION, NOW).
--- NOTE | 2016-08-20 10:53 | ED MED RECONCILIATION SUMMARY ---
Patient: JESUS MANUEL MEADE Medication Reconciliation Report [facility] VisitID: [id number] [address] [place] [address] 31y, F Registration Date/Time: 08/20/2016 Weight: 65.7 kg Height/Length: 61 in. BMI: 27.4 ALLERGIES: No Known Drug Allergy The patient's Home Medications are listed below: CONTINUE TAKING THE FOLLOWING MEDICATIONS: Ciprofloxacin Oral Gabapentin Oral 100 mg, 3x a day LamoTRIgine Oral 150 mg, bid MetroNIDAZOLE Oral Vitamins/Minerals Oral Wellbutrin Oral 150 mg, daily The source(s) of the original Home Medication information: Not obtained. The following Medications were given to the patient in the Emergency Department: IV NS IV Fluids bolus 0, then 500 mL/hr, administered: 08/20/2016 2:04:00 AM Dilaudid [IVP] IVP 0.5 mg, administered: 08/20/2016 2:12:00 AM Ativan [IVP] IVP 0.5 mg, administered: 08/20/2016 2:27:00 AM Zofran [IVP] IVP 4 mg, administered: 08/20/2016 2:08:00 AM Levofloxacin [IVPB] IVPB bolus 0, then 500 mg 100 mL/hr, administered: 08/20/2016 2:33:00 AM Flagyl [IVPB] IVPB bolus 0, then 500 mg 100 mL/hr, administered: 08/20/2016 3:36:00 AM PHENERGAN [IVP] IVP 12.5 mg, administered: 08/20/2016 4:47:00 AM The following Medications were prescribed to the patient: None.
--- NOTE | 2016-08-20 10:53 | ED MED RECONCILIATION SUMMARY ---
Patient: JESUS MANUEL MEADE Medication Reconciliation Report [facility] VisitID: [id number] [address] [place] [address] 31y, F Registration Date/Time: 08/20/2016 Weight: 65.7 kg Height/Length: 61 in. BMI: 27.4 ALLERGIES: No Known Drug Allergy The patient's Home Medications are listed below: CONTINUE TAKING THE FOLLOWING MEDICATIONS: Ciprofloxacin Oral Gabapentin Oral 100 mg, 3x a day LamoTRIgine Oral 150 mg, bid MetroNIDAZOLE Oral Vitamins/Minerals Oral Wellbutrin Oral 150 mg, daily The source(s) of the original Home Medication information: Not obtained. The following Medications were given to the patient in the Emergency Department: IV NS IV Fluids bolus 0, then 500 mL/hr, administered: 08/20/2016 2:04:00 AM Dilaudid [IVP] IVP 0.5 mg, administered: 08/20/2016 2:12:00 AM Ativan [IVP] IVP 0.5 mg, administered: 08/20/2016 2:27:00 AM Zofran [IVP] IVP 4 mg, administered: 08/20/2016 2:08:00 AM Levofloxacin [IVPB] IVPB bolus 0, then 500 mg 100 mL/hr, administered: 08/20/2016 2:33:00 AM Flagyl [IVPB] IVPB bolus 0, then 500 mg 100 mL/hr, administered: 08/20/2016 3:36:00 AM PHENERGAN [IVP] IVP 12.5 mg, administered: 08/20/2016 4:47:00 AM The following Medications were prescribed to the patient: None.
== END 2016-08-20 09:30 | disposition home or self-care (01) ==
LOC: ED SRH 00:19
DX: G43.719 Chronic migraine without aura, intractable, without status migrainosus (principal); K57.92 Diverticulitis of intestine, part unspecified, without perforation or abscess without bleeding; Z79.899 Other long term (current) drug therapy
CPT/HCPCS: 90074; 93004; 95059